=== PATIENT | female | born 1935 | race Caucasian/White ===

== ENCOUNTER 2025-02-12 20:13 | Emergency (ER) | payer MEDICARE, OTHER ==
[~2025-02-12] VITALS: Ht 154.9 cm; Wt 82.7 kg
[2025-02-12 20:25] VITALS: BP 181/88; PULSE 70; RESP 16; TEMP 98.8; O2SAT 98
[2025-02-12 20:52] LABS: LEUKOCYTE ESTERASE ,URINE NEGATIVE (Neg); NITRITES, URINE NEGATIVE (Neg); OCCULT BLOOD,URINE NEGATIVE (Neg)
[2025-02-12 20:53] LABS: URINE HCG NEGATIVE (NEG)
[2025-02-12 20:57] LABS: UA COLLECTION TYPE NON-SPECIFIED
--- NOTE | 2025-02-12 21:07 | Physician Documentation ---
History of Present Illness Chief Complaint: Flank Pain Stated Complaint: HIGH BLOOD PRESSURE HPI Patient is an 89-year-old female that presents to the emergency department for e valuation of lower abdominal pain. Patient reports nausea fevers and chills. Patient reports that she has right-sided mid back pain. Patient denies any dysuria, urinary frequency or hesitancy. Patient reports that she had pain radiating down her right leg a couple of weeks ago but that has since then resolved. Medication Reconciliation Allergies: Coded Allergies: amlodipine (Verified Allergy, Intermediate, EXTREMITY SWELLING, 02/12/25) baclofen (Verified Allergy, Mild, JAW PAIN, 02/12/25) hydrochlorothiazide (Verified Allergy, Mild, GOUT, 02/12/25) lisinopril (Verified Allergy, Mild, COUGH, 02/12/25) methotrexate (Verified Allergy, Mild, HIVES, 02/12/25) terazosin (Verified Allergy, Mild, HOTN, 02/12/25) atenolol (Verified Allergy, Unknown, UNKNOWN, 02/12/25) gabapentin (Verified Allergy, Unknown, UNKNOWN PER PT, 02/12/25) Uncoded Allergies: ACTEMARA (Allergy, Mild, HIVES, 02/12/25) HYDROCHLOROQUINE (Allergy, Mild, UPSET STOMACH, 02/12/25) OMPERAZOLE (Allergy, Mild, HIVES, 02/12/25) SULFASALASINE (Allergy, Mild, HIVES, 02/12/25) CYCLOBINZAPRINE (Allergy, Unknown, UNKNOWN, 02/12/25) Physical Exam Vital Signs: Temperature: 98.8, Source: Temporal, Heart Rate: 70, Respiratory Rate: 16, BP: 181/88, Pulse Oximetry: 98, Weight: 82.730 Oxygen Flow Rate: 0 Progress Results/Orders Results/Orders Orders - ALICIA WATERSP Cbc/Diff (02/12/25 20:36) BMP (02/12/25 20:36) Lipase (02/12/25 20:36) CMP (02/12/25 20:36) Stat Ekg (02/12/25 ) Completed Orders - ALICIA WATERS SH[employer]EMMER Urinalysis, Cult If Indicated (02/12/25 20:36) Hcg, Ur Ql (8/15/25 20:36) Vital Signs 02/12/25 20:25 Temp 98.8 Pulse 70 Resp 16 B/P (MAP) 181/88 Pulse Ox 98 O2 Flow Rate 0 Laboratory Tests Test 02/12/25 20:38 Urine Specimen Description Non-specified Urine Color Yellow Urine Clarity Clear Urine pH 6.0 Urine Specific [place] <=1.005 Urine Protein Negative Urine Glucose (UA) Negative Urine Ketones Negative Urine Occult Blood Negative Urine Nitrite Negative Urine Bilirubin Negative Urine Urobilinogen 0.2 Urine Leukocyte Esterase Negative Urine Culture Indicated Not ind Volume Urine Centrifuged 5 ml Urine HCG, Qualitative Negative Urine Comment Low volume Medical Decision Making Findings This patient presents with back pain most consistent with acute on chronic lumbosacral strain. Differential diagnoses includes lumbago versus musculoskeletal spasm / strain versus sciatica. Less likely sciatica as straight leg raise test was negative. No back pain red flags on history or physical. Presentation not consistent with malignancy (lack of history of malignancy, lack of B symptoms), fracture (no trauma, no bony tenderness to palpation), cauda equina (no bowel or urinary incontinence/retention, no saddle anesthesia, no distal weakness), AAA, viscus perforation, osteomyelitis or epidural abscess (no IVDU, vertebral tenderness), renal colic, pyelonephritis (afebrile, no CVAT, no urinary symptoms). Given the clinical picture, no indication for imaging at this time. Patient reported edema in her bilateral lower extremities. CBCs CMP BNP ordered. No concern for CHF at this time. Lidocaine patches and pain medication prescribed. Education provided to the patient regarding medications and need for follow up with her primary care provider. Patient provided with strict return precautions. Departure Disposition: HOME / SELF CARE / HOMELESS Impression: Primary Impression: Strain of lumbar region Additional Impression: Edema, lower extremity Condition: Stable Discharge Instructions: Lumbosacral Strain, Chronic Back Pain Additional Instructions: This patient presents with back pain most consistent with acute on chronic lumbosacral strain. Differential diagnoses includes lumbago versus musculoskeletal spasm / strain versus sciatica. Less likely sciatica as straight leg raise test was negative. No back pain red flags on history or physical. Presentation not consistent with malignancy (lack of history of malignancy, lack of B symptoms), fracture (no trauma, no bony tenderness to palpation), cauda equina (no bowel or urinary incontinence/retention, no saddle anesthesia, no distal weakness), AAA, viscus perforation, osteomyelitis or epidural abscess (no IVDU, vertebral tenderness), renal colic, pyelonephritis (afebrile, no CVAT, no urinary symptoms). Given the clinical picture, no indication for imaging at this time. Patient reported edema in her bilateral lower extremities. CBCs CMP BNP ordered. No concern for CHF at this time. Lidocaine patches and pain medication prescribed. Please take your medications as prescribed. Follow up with her primary care provider. Return to the emergency department if you have any worsening or recurrent symptoms or any additional concerning symptoms i.e. increased back pain numbness tingling to her lower extremities incontinence of bowel or bladder numbness or any other additional concerning symptoms we discussed here today. Referrals: NO PRIMARY CARE PROVIDER (PCP) Prescriptions Hydrocodone Bit/Acetaminophen 5/325 MG (Arena 5/325 MG) 5 Mg/325 Mg Tablet 1 TAB PO 12 hrs PRN for pain for 7 Days, #14 TAB Prov: ALICIA WATERS 02/12/25 Lidocaine (Lidoderm) 5 % Adh..patch 1 PATCH TOP DAILY for 30 Days, #10 PATCH 0 Refills may wear up to 12 hours Prov: ALICIA WATERS 02/12/25 Education Educated: Patient Educated regarding: diagnosis, treatment, need for follow up Signature Scribe Signature: AScribed for Alicia Waters by GELACIO Ramirez . 02/13/25 00:00 Attestation: Scribed for Alicia Watersp by GELACIO Ramirez . 02/13/25 00:01 ALICIA WATERS Feb 12, 2025 21:07
[2025-02-12 21:09] LABS: MEAN PLATELET VOLUME 8.5 FL (7.4-10.4); RED CELL DISTRIBUTION WIDTH 15.5 % (11.5-14.5)
--- NOTE | 2025-02-12 21:19 | ELECTROCARDIOGRAPH REPORT ---
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 Carlton Roque Measurements Intervals [place] Rate: 81 P: 0 [place]: 0 QRS: -37 QRSD: 101 T: 77 QT: 375 QTc: 436 Interpretive Statements Atrial fibrillation Left ventricular hypertrophy Inferior infarct, old Anterior infarct, old Baseline wander in lead(s) V3 Electronically Signed On 02-13-2025 8:22:[address] Carlton Roque Please click the below link to view image of tracing.
[2025-02-12 21:24] LABS: CREATININE 1.32 MG/DL (0.40-0.90); TOTAL CARBON DIOXIDE 25.3 MMOL/L (24-32); eCRCL 22 ML/MIN; eGFR 38 ML/MIN
[2025-02-12 23:00] LABS: PRO BRAIN NATRIURETIC PEPTIDE 593 PG/ML (0-450)
--- NOTE | 2025-02-12 23:53 | RADIOLOGY REPORT ---
INDICATION: BACK PAIN COMPARISON: None TECHNIQUE: 3 views of the lumbar spine were obtained. FINDINGS: There are 5 [id number] lumbar type vertebral bodies. There is grade 1 anterolisthesis at L4-L5 a nd L5-S1 . Grade 1 retrolisthesis at L1-L2 and L2-L3. There is bony demineralization. Multilevel lowe r thoracic and lumbar spondylosis. There is a chronic appearing moderate anterior compression fractur e of T11. Multilevel lower thoracic and lumbar spondylosis. Athero sclerosis projects over the abdomi nal aorta. Scattered gas throughout nondilated small and large bowel. Cholecystectomy clips. IMPRESSION: Multilevel lower thoracic and lumbar spondylosis. No acute fracture or traumatic malalignment. Chronic appearing moderate anterior compression fracture of T11.
[2025-02-12] MEDS ORDERED: HYDR-3965 PO (23:59)
[2025-02-12] MEDS ORDERED: LIDO-52 TOP (23:59)
== END 2025-02-13 00:11 | disposition home or self-care (01) ==
LOC: ER 20:14
DX: S39.012A Strain of muscle, fascia and tendon of lower back, initial encounter (principal); R60.0 Localized edema; R11.0 Nausea; R50.9 Fever, unspecified; R06.02 Shortness of breath; I25.2 Old myocardial infarction; I48.91 Unspecified atrial fibrillation; Z88.8 Allergy status to other drugs, medicaments and biological substances
CPT/HCPCS: 36415; 72100; 80053; 81003; 81025; 83690; 83880; 85025; 93005; 99285